=== PATIENT | female | born 1975 | race Caucasian/White ===

== ENCOUNTER → 2020-09-25 09:28 | Outpatient (CLI) | payer MEDICAID, SELFPAY ==
--- NOTE | 2020-09-25 09:39 | US_ITS ---
PROCEDURE: US FNA THYROID CLINICAL INDICATION: RT 2.5 CM thyroid nodule Dominant nodule on outside exam COMPARISON: US US THYROID from 09/04/2020 FINDINGS: Pre biopsy ultrasound demonstrates multinodular goiter. On the outside exam nodule labeled 3 with suggested for biopsy. Following obtaining informed consent under aseptic conditions and local anesthesia with 1 percent buffered lidocaine, 21 gauge needle was inserted into this nodule with sonographic guidance 3 times. The patient tolerated the procedure well without evidence of immediate complications and left radiology suite in stable condition Cytology: Atypical IMPRESSION: Uneventful ultrasound-guided fine needle aspiration the right lobe of the thyroid gland. Cytology was interpreted as atypical. Please see that report for further description. Dictated by: Yasmani Wiley MD 10/05/2020 18:20 Yasmani Wiley MD in [place] 10/05/2020 18:20
== END ==
PROVIDERS: PCP Physician Assistant; Visit Provider Otolaryngology
DX: E04.1 Nontoxic single thyroid nodule (principal)
CPT/HCPCS: 10005; 76942

== ENCOUNTER → 2020-10-15 09:03 | Outpatient (CLI) | payer MEDICAID, SELFPAY ==
[2020-10-15 09:40] LABS: Basophils # 0.1 K/mm3 (0-0.2); Basophils % 1.2 % (0.1-2.0); Eosinophils # 0.2 K/mm3 (0.0-0.4); Eosinophils % 2.4 % (0.1-12.0); Hematocrit 48.7 % (37.0-47.0); Hemoglobin 16.2 g/dL (12.2-16.2); Lymphocytes # 1.8 K/mm3 (0.7-4.5); Lymphocytes % 21.7 % (10-50); Mean Corpuscular HGB Conc 33.3 g/dL (31.8-35.4); Mean Platelet Volume 7.3 fl (7.4-10.4); Monocytes # 0.3 K/mm3 (0.1-1.0); Monocytes % 3.2 % (1.7-9.3); Neutrophils # 5.8 K/mm3 (1.8-7.8); Neutrophils % 71.5 % (37.0-80.0); Platelet Count 410 K/mm3 (142-424); Red Blood Count 5.41 M/mm3 (4.20-5.40); Red Cell Distribution Width 13.7 % (11.5-17.5); White Blood Count 8.1 K/mm3 (4.8-10.8)
--- NOTE | 2020-10-15 09:51 | ECG_ITS ---
APPROVED REPORT Exam: Resting ECG HR:81 bpm ECG Measurements Heart Rate 81 AXES AK 142 P 0 QRSd 90 QRS -4 QT 370 T 5 QTc 429 Conclusion Normal sinus rhythm Normal ECG Electronically signed by : Tino Burgos, 10/16/2020 17:29:48
[2020-10-15 09:57] LABS: Chloride 104 mmol/L (98-107); Potassium 4.1 mmoL/L (3.5-5.1); Sodium 140 mmol/L (136-145)
[2020-10-15 10:00] LABS: Anion Gap 16.1 mEq/L (5-15); Blood Urea Nitrogen 8 mg/dl (7-17); Carbon Dioxide 24 mmol/L (22.0-30.0); Estimated Glomerular Filt Rate 60 ml/min (>60); GFR (African American) 73 ML/MIN (>60)
[2020-10-15 10:01] LABS: Glucose 119 mg/dl (74-100)
[2020-10-15 10:17] LABS: Free T4 (Free Thyroxine) 0.78 ng/dl (0.78-2.19)
[2020-10-15 11:01] LABS: Coronavirus 19 IgG Antibody Negative (Negative); Coronavirus 19 IgM Antibody Negative (Negative)
== END ==
PROVIDERS: Visit Provider Otolaryngology
DX: Z03.818 Encounter for observation for suspected exposure to other biological agents ruled out; Z01.818 Encounter for other preprocedural examination; E04.9 Nontoxic goiter, unspecified; E06.3 Autoimmune thyroiditis
CPT/HCPCS: 36415; 80048; 84439; 84443; 85025; 86328; 93005

== ENCOUNTER 2020-10-16 08:43 | Observation (INO) | payer MEDICAID, SELFPAY ==
[2020-10-11 12:48] VITALS: BMI 25.0
[2020-10-16] VITALS (20 sets, daily range): BP systolic 109–138; BP diastolic 67–82; PULSE 66–94; RESP 16–20; TEMP 36.2–36.8; O2SAT 95–99; BMI 25.0
--- NOTE | 2020-10-16 09:55 | HMH.HP ---
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 Given the size of the nodule of the right thyroid 2.5 cm nodule I have recommended a thyroidectomy. This will be performed on 10/16/2020. [facility] History I have reviewed the patient's past medical history: Yes Medical History: Denies:: Cancer, Diabetes Mellitus Type 1, Diabetes Mellitus Type 2, Internal Pacemaker, MRSA, Seizures *Have you ever received a pneumonia vaccine?: No *Have you received a flu vaccine this season?: No Other Medical History: Denies: Blood Transfusion Reaction Other Surgeries: Yes: Appendectomy, Hysterectomy-Total. 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 Meds Home Medications Medication Instructions Recorded Confirmed Type Levothyroxine Sodium 50 mcg PO DAILY 10/11/20 10/16/20 History [Levothyroxine 50mcg (0.05mg) Tab] Allergies Allergy/AdvReac Type Severity Reaction Status Date / Time No Known Allergies Allergy Verified 10/11/20 12:42 Exam Vital signs and Labs for Last 24 Hours: Temp Pulse Resp BP Pulse Ox 97.2 F L 66 20 124/74 96 10/16/20 07:03 10/16/20 07:03 10/16/20 07:03 10/16/20 07:03 10/16/20 07:03 - Constitutional no acute distress - *Routine HEENT Exam Head: Present: normocephalic Eye: Present: EOMI, PERRL ENT: Present: mucous membranes moist - *Routine Neck Exam Present: supple. Absent: lymphadenopathy - *Routine Respiratory Exam Present: CTA bilaterally - *Routine Cardiovascular Exam Present: RRR - *Routine Abdominal Exam Present: soft, normoactive bowel sounds. Absent: tenderness - *Routine Extremities Exam Absent: cyanosis, clubbing, edema - *Routine Skin Exam Present: warm. Absent: rash - *Routine Neurological Exam Present: alert, oriented X3 Assessment and Plan (1) Status post thyroidectomy Status: Acute Category: Surgical Code(s): Z98.890 - Other specified postprocedural states
--- NOTE | 2020-10-16 10:52 | SUR.OPER ---
1048-specimen taken to lab to pathologist at this time
--- NOTE | 2020-10-16 11:15 | P.OP_ITS ---
Date of procedure: 10/16/20 Pre-op Diagnosis:: 1. 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 right thyroid nodule with atypical cells Post-op Diagnosis:: same Procedure performed:: Total right thyroid lobectomy including substernal portion Surgeon:: Jean Cassidy MD CHIEF RELAY TESTER:: Minor Eric Anesthesia: GETA Estimated blood loss (mL): 39 Operative findings:: same Operative note:: With patient under general anesthesia using a nerve monitoring endotracheal tube, the patient was positioned properly on the table with some significant extension of the neck and the neck was prepped with Betadine and draped. An extended thyroid incision was marked out because of the large thyroid mass skin subcutaneous tissue and platysma were incised and flaps were elevated. The sternomastoid muscles were identified on each side and the strap muscles were identified on each side and divided. The mass was so large that it was necessary to do a partial incision of the right sternomastoid muscle in order to get adequate exposure to reach the superior vascular pedicle. There was also a very large pyramidal lobe with significant vascularity. The vascularity to the patent pyramidal lobe was divided and oversewn and the pyramidal lobe was mobilized superiorly. When that was done it was possible to map mobilized the superior vascular pedicle of the right lobe and the superior vascular pedicle was doubly ligated and divided. At that point it was possible to disimpact the mass from its superior attachments and dissection was commenced carried inferiorly and the substernal portion was mobilized and brought up into the neck. When that was done it was possible to ligate and divide the inferior thyroid veins. The inferior thyroid artery was then identified on the right side as was the inferior parathyroid gland and the gland was retained in situ. The right recurrent laryngeal nerve was identified and stimulated positively and then the inferior thyroid artery on the right side was doubly ligated and divided. It was then possible to access the middle thyroid vein on the right side and it was doubly ligated and divided. The superior vascular pedicle on the right side was doubly ligated and divided and then the gland was fully mobilized and one could's from the trachea. The recurrent laryngeal nerve was then followed through to where it entered the cricothyroid membrane of the larynx. The mass was then removed in entirety and the isthmus was transected and along the medial aspect of the left lobe and oversewn with 2-0 Vicryl. The Guerrero's ligament was then divided and the mass was removed and submitted for frozen section analysis. The pathologist reported florid thyroiditis. The wound was thoroughly irrigated all of the bleeding was stopped Surgicel snow was placed in the prevertebral area and in the superior mediastinal area and then the neck was closed in the usual fashion with the set strap muscles in the right third sternomastoid muscle repaired with 2-0 Vicryl, 10 mm Torres-Haque drain was placed and hooked to suction and the subcutaneous layer was repaired with 2-0 Vicryl Dermabond was placed on the skin and a dressing was applied. The patient tolerated the procedure well and was sent to recovery in good general condition. signed Jean Cassidy MD Condition: stable Disposition: PACU Complications:: none
--- NOTE | 2020-10-16 11:40 | P.PN_ITS ---
[facility] Anesthesia Checklist - Patient Identification Patient Identification: Arm Band - Structural Data Admitted From: Home Planned Operative Procedure/s: thyroidectomy Consent for Planned Operative Procedure(s) Verified: Yes Verified Documents: Surgical Consent, History and Physical - NPO Status Verified Time NPO: 00:00 - Additional verifications Anesthesia Reactions: No Hx Blood Transfusions: No Blood Transfusion Reaction: No - Airway Assessment C-Spine Mobility Assessed: Yes (mp2) TMJ Mobility Assessed: Yes Dentition: Good Dentition - Neurological Assessment Level of Consciousness: Awake, Alert - Anesthesia Plan Anesthesia Risk discussed: Yes Anesthesia Plan: Verified ASA Class: II Anesthesia Type: General [facility] History I have reviewed the patient's past medical history: Yes Medical History: Denies:: Cancer, Diabetes Mellitus Type 1, Diabetes Mellitus Type 2, Internal Pacemaker, MRSA, Seizures *Have you ever received a pneumonia vaccine?: No *Have you received a flu vaccine this season?: No Other Medical History: Reports: Hypothyroidism. Denies: Blood Transfusion Reaction Anesthesia experience/problems:: nac Other Surgeries: Yes: Appendectomy, Hysterectomy-Total. No: Pacemaker Amputation: No Fractures: No - *Social History Last grade of school completed: High school graduate Smoking Status: Former smoker Alcohol Intake: current Alcohol Intake Frequency:: holidays/special occasions only Substance Use Type: denies use *Occupational Status:: employed Housing: house Household Members: spouse *Travel in the last 8 weeks: None Family Hx:: Coronary Artery Disease, Heart Attack, Hypertension
--- NOTE | 2020-10-16 11:40 | PC.NURSE ---
hooked to high wall suction per md orders
--- NOTE | 2020-10-16 11:41 | HMH.ANESI ---
[facility] Anesthesia Record Part I Intake, IV Amount: 1,600 Estimated blood loss (mL): 40 Urine output (mL): 0 Blood Pressure: 109/68 SaO2: 97 Pulse Rate: 86 Respiratory Rate: 16 Temperature: 98 F Patient is:: Drowsy, Stable Stable to PACU at:: 11:40
--- NOTE | 2020-10-16 12:29 | P.CONPHA_ITS ---
[facility] Pharmacy VTE Monitoring - Patient Demographics Admission date: 10/16/20 Report Date: 10/16/20 Time: 12:29 Allergies/Adverse Reactions: Patient Allergies No Known Allergies Allergy (Verified 10/11/20 12:42) Height: 1.65 m Weight: 68.039 kg Patient Problems: Current Active Problems Status post thyroidectomy (Acute) - Prophylaxis VTE Prophylaxis Ordered?: Yes Types of VTE Prophylaxis: TEDS Knee High Location of Applied Device: Bilateral Lower Extremeties
--- NOTE | 2020-10-16 13:28 | HMH.ANESII ---
[facility] Anesthesia Record Part II Discharge Time: 12:00 Destination: Medical Surgical Department PACU nurse assessment reviewed?: Yes Patient Condition:: Good Anesthesia Complications:: None Swallowing reflex intact?: Yes Cyanosis?: No Blood Pressure: 111/82 Pulse Rate: 90 Temperature: 98 F Mental Status: Alert & Oriented Pain level:: 0 Nausea and/or vomitting:: None Intake, IV Amount: 0
--- NOTE | 2020-10-16 19:39 | PC.NURSE ---
SHE IS AOX4, ABLE TO MAKE NEEDS KNOWN TO STAFF, TOLERATING RA WELL WITH NO COMPLAINTS, ABD SOFT AND NON TENDER. VITAL SIGNS HAVE BEEN STABLE, CHRIS TO HIGH WALL SUCTION, PT TREATED WITH PRN MORPHINE WITH GOOD EFFECTIVENESS.
[2020-10-17] VITALS: BP 128/67; PULSE 93; RESP 16; TEMP 37; O2SAT 95
[2020-10-17 04:00] VITALS: BP 111/64; PULSE 90; RESP 18; TEMP 36.9; O2SAT 96
--- NOTE | 2020-10-17 04:17 | PC.NURSE ---
Pt A&OX4 lungs CTA. pt has been medicated for pain once this shift per DEC. Lambert drain hooked to high wall suction with small amount of blood drainage. pt has rested quietly this shift.
--- NOTE | 2020-10-17 04:48 | PC.NURSE ---
Pt tolerating po intake well. pt's iv fluids d/c @ this time per MD orders.
[2020-10-17 05:53] VITALS: BMI 26.8
[2020-10-17 07:31] VITALS: BP 118/77; PULSE 85; RESP 18; TEMP 36.8; O2SAT 96
--- NOTE | 2020-10-17 09:19 | P.DS_ITS ---
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 Given the size of the nodule of the right thyroid 2.5 cm nodule I have recommended a thyroidectomy. This will be performed on 10/16/2020. Hospital Course Hospital Course: Pt admitted on 10/17/20 post total right thyroid lobectomy. Pt was observed and assessed overnight and remained stable. CHRIS drain was removed at 0900 on 10/17/20 dressing of telfa/tegaderm was placed over surgical site and pt tolerated well. Pt will be discharged to home today and return for f/u next week. Objective Vital signs: Temp Pulse Resp BP Pulse Ox 98.3 F 85 18 118/77 96 10/17/20 07:31 10/17/20 07:31 10/17/20 07:31 10/17/20 07:31 10/17/20 07:31 no acute distress - *Routine HEENT Exam Head: Present: normocephalic Eye: Present: EOMI, PERRL ENT: Present: mucous membranes moist Comments: thyroidectomy site free from s/s of infection. - *Routine Neck Exam Present: supple Comments: lower neck surgical site noted- dressing changed. no drainage noted. - *Routine Respiratory Exam Present: CTA bilaterally - *Routine Cardiovascular Exam Present: RRR - *Routine Abdominal Exam Present: soft, normoactive bowel sounds. Absent: tenderness - *Routine Extremities Exam Absent: cyanosis, clubbing, edema - *Routine Skin Exam Present: warm. Absent: rash - Detailed Eye Exam Eyelids: Bilateral normal inspection DS: Diagnosis - Discharge Diagnosis (1) Status post thyroidectomy Status: Acute Discharge Plan - Patient Discharge Instructions ACTIVITY: Continue current activity DIET: continue same diet Patient Instructions: DI for Thyroidectomy - Follow up Plan Follow up with: Jean Cassidy MD [Staff Physician] - 1 week (Follow up appt scheduled for October 22 1:45- [facility] speciality clinic) Disposition: Home, Self-[facility] Medications: Home Medications Medication Instructions Recorded Confirmed Type Levothyroxine Sodium 50 mcg PO DAILY 10/11/20 10/16/20 History [Levothyroxine 50mcg (0.05mg) Tab] Calcium Carbonate/Vitamin D3 500 mg PO BID 10 Days #20 tab 10/17/20 Rx [Oscal +D 500mg Tab] Hydrocod/Acet 5/325 mg [[place] 1 tab PO Q6HP PRN #31 tablet 10/17/20 Rx 5/325mg tablet] Levothyroxine Sodium [Synthroid 125 mcg PO DAILYDM #30 tab 10/17/20 Rx 125mcg (0.125mg) tablet] Prescriptions/Medication Reconciliation: New Hydrocod/Acet 5/325 mg [[place] 5/325mg tablet] 1 tab PO Q6HP PRN #31 tablet PRN Reason: Mild Pain Levothyroxine Sodium [Synthroid 125mcg (0.125mg) tablet] 125 mcg PO DAILYDM #30 tab Calcium Carbonate/Vitamin D3 [Oscal +D 500mg Tab] 500 mg PO BID 10 Days #20 tab Discontinued Levothyroxine Sodium [Levothyroxine 50mcg (0.05mg) Tab] 50 mcg PO DAILY - Problem Reconciliation Problems Reviewed?: Yes
[2020-10-17 09:33] LABS: Calcium 9.4 mg/dl (8.4-10.2)
== END 2020-10-17 10:47 | disposition home or self-care (01) ==
LOC: 2ND 08:43
PROVIDERS: Admitting Provider Otolaryngology; PCP Physician Assistant; Visit Provider Otolaryngology
PROC: (CPT 60220; principal; 2020-10-16 08:30)
DX: E06.3 Autoimmune thyroiditis (principal); K22.8 Other specified diseases of esophagus
CPT/HCPCS: 60220; 82310; 96374; 96375; G0378; J2405